=== PATIENT | female | born 1945 | race Asian ===

== ENCOUNTER 2017-06-11 11:51 | Day surgery (SDC) | payer MEDICARE, MEDICAID ==
[~2017-06-11] VITALS: Ht 162.6 cm; Wt 92.6 kg
[~2017-06-11 11:51] MED LIST: ALLO300T PO; AMLO10TA2 PO; ATOR10TA PO; BUPIVACAINE/PF 0.25% ONE; EPINEPHRINE 1 MG/ML, 1ML ONE; HYDR25TA6 PO; LISI-170 PO; METOPROLOL PO; SILVER NITRATE STICK TP ONE
[2017-06-11] MEDS ORDERED: LACTATED RINGERS 1,000 ML IV SCH (13:00)
[2017-06-11] MEDS ORDERED: METO-99 PO (13:09)
[2017-06-11 13:11] VITALS: BP 147/80
[2017-06-11] MEDS ORDERED: MIDAZOLAM 1 MG/ML, 2ML ONE (13:11)
[2017-06-11] MEDS ORDERED: FENTANYL PF 100 MCG/2ML ONE ×2 (13:11→14:19)
[2017-06-11] MEDS ORDERED: DEXAMETHASONE 4 MG/ML, 1ML ONE (13:27)
[2017-06-11] MEDS ORDERED: ONDANSETRON 2MG/ML, 2ML ONE (13:27)
[2017-06-11] MEDS ORDERED: PROPOFOL 10 MG/ML, 20ML ONE (13:27)
[2017-06-11] MEDS ORDERED: KETAMINE 10 MG/ML, 20ML ONE (13:27)
[2017-06-11] MEDS ORDERED: ROCURONIUM 10 MG/ML,10ML ONE (13:27)
[2017-06-11] MEDS ORDERED: METOPROLOL 1 MG/ML, 5ML ONE (13:53)
[2017-06-11] MEDS ORDERED: MEPERIDINE/PF 25MG/0.5ML IVPush PRN (14:00)
[2017-06-11] MEDS ORDERED: FENTANYL PF 100 MCG/2ML IV PRN (14:00)
[2017-06-11] MEDS ORDERED: HYDROmorphone 1 MG/ML, 1ML IV PRN (14:00)
[2017-06-11] MEDS ORDERED: hydrALAzine 20 MG/ML, 1ML IV PRN (14:00)
[2017-06-11] MEDS ORDERED: ACETAMINOPHEN 325 MG TABLET PO PRN (14:00)
[2017-06-11] MEDS ORDERED: OXYcodone 5 MG/5 ML ORAL.SOL UDC PO PRN (14:00)
[2017-06-11] MEDS ORDERED: LABETALOL 5MG/ML, 20ML IV PRN (14:00)
[2017-06-11] MEDS ORDERED: PROMETHAZINE 12.5 MG SUPP PR PRN (14:00)
[2017-06-11] MEDS ORDERED: ONDANSETRON 2MG/ML, 2ML IVPush PRN (14:00)
== END 2017-06-11 16:25 ==
LOC: EDBD → OUT 11:51 → MERGE 13:00 → OUT 16:25
PROVIDERS: ATTEND Student in an Organized Health Care Education/Training Program
DX: N84.0 Polyp of corpus uteri (principal); N95.0 Postmenopausal bleeding; N85.8 Other specified noninflammatory disorders of uterus; I12.9 Hypertensive chronic kidney disease with stage 1 through stage 4 chronic kidney disease, or unspecified chronic kidney disease; N18.9 Chronic kidney disease, unspecified; Z98.890 Other specified postprocedural states; Z91.012 Allergy to eggs; Z91.040 Latex allergy status; Z91.013 Allergy to seafood
CPT/HCPCS: 36415; 58558; 86850; 86900; 88305; J0171; J1100; J2250; J2405; J2704; J3010; J3490; J7120